=== PATIENT | male | born 1965 | race Caucasian/White ===

== ENCOUNTER 2020-01-21 22:45 | Inpatient (IN) | payer OTHER ==
[~2020-01-21] VITALS: Ht 185.4 cm; Wt 106.9 kg
[2020-01-22] VITALS (574 sets, daily range): BP systolic 120–138; BP diastolic 76–84; PULSE 85–119; TEMP 98.6–100.2; O2SAT 81–99
[2020-01-22] MEDS ORDERED: LEVAQUIN 750MG750 M1 PO (00:15)
[2020-01-22] MEDS ORDERED: FLOMAX 0.40.4 MG/CAP PO (00:19)
[2020-01-22] MEDS ORDERED: CIALIS2.5 MG (00:20)
[2020-01-22 00:29] LABS: BASO # 0.1 (0.0-0.2); BASO % 0.3 % (0.0-2.0); EOS # 0.2 (0.0-0.7); EOS % 1.4 % (0-4.0); GRAN # 10.3 (1.4-6.5); GRAN % 70.8 % (42.2-75.2); HEMATOCRIT 38.4 % (42.0-52.0); HEMOGLOBIN 12.8 g/dl (13.5-18.0); LYMPH # 2.4 (1.2-3.4); LYMPH % 16.7 % (20.0-51.0); MEAN CELL VOLUME 90 fl (80.0-100.0); MEAN CORPUSCULAR HEMOGLOBIN 30 pg (27.0-31.0); MEAN CORPUSCULAR HGB CONC 33 g/dl (33.0-37.0); MEAN PLATELET VOLUME 9.8 fl (7.4-10.4); MONO # 1.5 (0.1-0.6); MONO % 10.3 % (1.7-9.3); PLATELET COUNT 299 K/mm3 (130-400); RED BLOOD COUNT 4.29 M/mm3 (4.20-5.60); REDCELL DISTRIBUTION WIDTH-CV 13.6 % (11.5-14.5)
[2020-01-22 00:35] LABS: INR 1.5 (0.8-3.0); PROTHROMBIN TIME 17.5 SECONDS (9.7-12.8)
[2020-01-22 00:43] LABS: ALANINE AMINOTRANSFERASE 239 U/L (4-49); ALBUMIN 3.9 gm/dL (3.5-5.0); ALKALINE PHOSPHATASE 255 U/L (50-136); ANION GAP 8 mmol/L (7-16); AST,SGOT 71 U/L (15-37); BILIRUBIN,TOTAL 1.8 mg/dL (0.0-1.0); BLOOD UREA NITROGEN 14 mg/dL (9-20); CALCIUM 9.1 mg/dL (8.4-10.2); CARBON DIOXIDE 25 mmol/L (22-30); CHLORIDE 98 mmol/L (98-107); CREATININE, serum 1.07 (0.66-1.25); GLUCOSE 119 mg/dL (74-106); LIPASE 31 U/L (23-300); SODIUM 131 mmol/L (137-145); TOTAL PROTEIN 7.4 gm/dL (6.4-8.2)
[2020-01-22 00:55] LABS: C-REACTIVE PROTEIN 15.5 mg/dL (0.0-0.9); TROPONIN-I < 0.012 ng/mL (0.000-0.035)
--- NOTE | 2020-01-22 05:30 | NUR ---
patient arrived to [facility] 12. Assessment complete. Bases bilaterally diminshed. Heart sounds normal. Bowels active x4. Pulses present throughout. No edema noted. INT right AC without complications. Orientated to IMCU. All questions answered. BRISEYDA Haque in room to see patient.
[2020-01-22] MEDS ORDERED: CIALIS5 MG PO (05:44)
[2020-01-22] MEDS ORDERED: DOSTINEX0.5 MG/TAB (05:45)
[2020-01-22 05:57] LABS: BASO % 0.2 % (0.0-2.0); EOS % 0.3 % (0-4.0); GRAN % 82.5 % (42.2-75.2); HEMOGLOBIN 12.7 g/dl (13.5-18.0); LYMPH # 1.2 (1.2-3.4); MEAN CELL VOLUME 89 fl (80.0-100.0); MEAN CORPUSCULAR HEMOGLOBIN 30 pg (27.0-31.0); MEAN CORPUSCULAR HGB CONC 33 g/dl (33.0-37.0); MEAN PLATELET VOLUME 9.9 fl (7.4-10.4); MONO # 1.2 (0.1-0.6); MONO % 8.5 % (1.7-9.3); PLATELET COUNT 283 K/mm3 (130-400); RED BLOOD COUNT 4.25 M/mm3 (4.20-5.60); REDCELL DISTRIBUTION WIDTH-CV 13.8 % (11.5-14.5)
[2020-01-22 06:04] LABS: ALBUMIN 3.8 gm/dL (3.5-5.0); BILIRUBIN,TOTAL 2.4 mg/dL (0.0-1.0); CALCIUM 8.9 mg/dL (8.4-10.2); CREATININE, serum 1.01 (0.66-1.25); POTASSIUM 4.2 mmol/L (3.4-5.0); TOTAL PROTEIN 7.3 gm/dL (6.4-8.2)
[2020-01-22 06:30] LABS: ARTERIAL BLD GAS O2 SATURATION 94.5 % (92-100); ARTERIAL BLD GAS TCO2 CT 23.4; ARTERIAL BLOOD GAS BASE EXCESS -1.5 (-2-2); ARTERIAL BLOOD GAS HCO3 22.4 meq/L (22-26); ARTERIAL BLOOD GAS PCO2 35.1 mmHg (35-45); ARTERIAL BLOOD GAS PO2 66.3 mmHg (80-100); ARTERIAL BLOOD GAS pH 7.42 (7.35-7.45)
--- NOTE | 2020-01-22 06:30 | NUR ---
Reported nausea that resolved with repositioning. Denies needs. Will monitor/
--- NOTE | 2020-01-22 07:19 | NUR ---
Report given to SINDY Dang
--- NOTE | 2020-01-22 10:34 | NUR ---
SW contacted the patient to discuss discharge plan. The patient lives in [place] with his , Azul (ph#[phone]). He reports independence with ADLs and does not have any DME. The patient receives primary care and his medications at [facility]. He reports no difficulties obtaining his meds. The patient does not have advanced directives completed. The patient plans to return back home with his upon discharge. The patient is pending COVID results. SW to continue to follow as needed.
--- NOTE | 2020-01-22 11:00 | NUR ---
Assessment completed, alert/oriented, vital signs stable/ afebrile this morning, denies pain at this time, stated some intermittent nausea/ denies vomitting, is tolerating some PO intake, reports breathing is doing a little better, on 1L. o2 and sats are doing well in the upper 90%'s, lungs have good air exchanges/ some fine crackels to RLL, heart RRR, distal pulses are palapble, COVID suspect and in proper isolation per protocol, denies other needs at this time, will continue to monitor
--- NOTE | 2020-01-22 20:10 | NUR ---
Resting in bed visiting with family via cell phone. Assessment complete. Lungs dimished throughout. Heart sounds tachy. Bowels active x4. Pulses strong throughout. No edema noted. INT right AC flushed without complications. Zosyn started at this time. Denies shortness of breath and pain. Denies needs. Call light in reach.
--- NOTE | 2020-01-22 22:15 | NUR ---
patient up to restroom and returned to bed. Call light in reach. Denies needs.
[2020-01-23] VITALS (717 sets, daily range): BP systolic 120–139; BP diastolic 50–85; PULSE 87–112; TEMP 98.3–101.3; O2SAT 86–98
--- NOTE | 2020-01-23 00:07 | NUR ---
Patient reports aches with coughing in chest. 11/12. Provided with PRN tylenol. ALso has temp of 100.2. room temp decreased and covers removed.
--- NOTE | 2020-01-23 03:45 | NUR ---
Resting in bed. Denies needs. Call light in reach.
--- NOTE | 2020-01-23 06:38 | NUR ---
Patient had temp of max 100.2 during night. Tachycardia with ambulation. Otherwise uneventful night. Resting in bed this AM. Call light in reach.
--- NOTE | 2020-01-23 08:04 | NUR ---
Report given to SINDY Rosado
[2020-01-23 08:32] LABS: BASO % 0.2 % (0.0-2.0); EOS # 0.1 (0.0-0.7); EOS % 0.8 % (0-4.0); GRAN # 10.2 (1.4-6.5); GRAN % 77.9 % (42.2-75.2); HEMOGLOBIN 11.9 g/dl (13.5-18.0); LYMPH # 1.4 (1.2-3.4); LYMPH % 10.5 % (20.0-51.0); MEAN CELL VOLUME 90 fl (80.0-100.0); MEAN CORPUSCULAR HEMOGLOBIN 30 pg (27.0-31.0); MEAN CORPUSCULAR HGB CONC 33 g/dl (33.0-37.0); MEAN PLATELET VOLUME 10.7 fl (7.4-10.4); MONO # 1.3 (0.1-0.6); MONO % 10.1 % (1.7-9.3); PLATELET COUNT 308 K/mm3 (130-400); RED BLOOD COUNT 4.03 M/mm3 (4.20-5.60); REDCELL DISTRIBUTION WIDTH-CV 13.9 % (11.5-14.5)
[2020-01-23 08:34] LABS: HEMATOCRIT 36.4 % (42.0-52.0)
[2020-01-23 08:40] LABS: ALBUMIN 3.1 gm/dL (3.5-5.0); BILIRUBIN,TOTAL 1.3 mg/dL (0.0-1.0); CALCIUM 9.9 mg/dL (8.4-10.2); CREATININE, serum 1.05 (0.66-1.25); TOTAL PROTEIN 6.8 gm/dL (6.4-8.2)
--- NOTE | 2020-01-23 08:45 | NUR ---
Patient resting in bed. Alert & oriented. He tolerated breakfast, reports his appetite is improved. He is concerned about his O2 needs increasing with exertion. Vss on room air, O2 sats do decreased with exertion. Int to [facility] for Iv antibioitcs.
--- NOTE | 2020-01-23 11:16 | NUR ---
Patient up to the bathroom, no difficulty with voiding or constpation. Cardiology, hospitalist, & pulmonolgy have rounded. Patient denies the needs for hygiene assistance, it was offered. strict precautions in place, still pending covid testing.
[2020-01-23 13:38] LABS: CK total - for Isoenzymes 52 U/L (39 - 308)
--- NOTE | 2020-01-23 15:45 | NUR ---
1300 DAYDAY CHARGE NURSE ASSISTED WITH COVID 19 SCREEN. SENT TO LAB. Patient IV zosyn per orders. Continues to tolerate diet, low grade fever noted, no O2 needs at this time
--- NOTE | 2020-01-23 18:42 | NUR ---
Patient fever down to 99.3 after tylenol. He tolerated dinner. denies needs. will report off to night nurse
--- NOTE | 2020-01-23 20:30 | NUR ---
Resting in bed. Assessment complete. Right lung dimished. Left lung clear. Heart sounds normal. Bowels active x4. Pulses present throughout. Patient reports aches in chest with coughing. Provided PRN tylenol. INT right AC leaking. Restarted in right upper arm at this time. Denies other needs. Call light in reach.
[2020-01-24] VITALS (820 sets, daily range): BP systolic 115–142; BP diastolic 74–91; PULSE 92–113; TEMP 98.6–101; O2SAT 87–99
--- NOTE | 2020-01-24 00:45 | NUR ---
Patient temp is 100.5. Reports "feeling warm." Provided with PRN tylenol.
--- NOTE | 2020-01-24 01:46 | NUR ---
Patient temp 101. Room temp decreased. Cool wash cloth applied to forehead and neck. Will monitor.
--- NOTE | 2020-01-24 03:09 | NUR ---
patient temp down to 99.2. Resting in bed. Call light in reach.
[2020-01-24 06:12] LABS: BASO % 0.3 % (0.0-2.0); EOS # 0.1 (0.0-0.7); EOS % 0.9 % (0-4.0); GRAN # 8.9 (1.4-6.5); HEMOGLOBIN 11.8 g/dl (13.5-18.0); LYMPH # 1.5 (1.2-3.4); LYMPH % 12.3 % (20.0-51.0); MEAN CELL VOLUME 90 fl (80.0-100.0); MEAN CORPUSCULAR HEMOGLOBIN 29 pg (27.0-31.0); MEAN CORPUSCULAR HGB CONC 33 g/dl (33.0-37.0); MEAN PLATELET VOLUME 10.4 fl (7.4-10.4); MONO # 1.3 (0.1-0.6); MONO % 11.1 % (1.7-9.3); PLATELET COUNT 333 K/mm3 (130-400); RED BLOOD COUNT 4.02 M/mm3 (4.20-5.60); REDCELL DISTRIBUTION WIDTH-CV 13.6 % (11.5-14.5)
[2020-01-24 06:27] LABS: HEMATOCRIT 36.2 % (42.0-52.0)
[2020-01-24 06:29] LABS: ALBUMIN 3.3 gm/dL (3.5-5.0); BILIRUBIN,TOTAL 2.7 mg/dL (0.0-1.0); CALCIUM 8.7 mg/dL (8.4-10.2); CREATININE, serum 1.06 (0.66-1.25); POTASSIUM 3.7 mmol/L (3.4-5.0); TOTAL PROTEIN 6.7 gm/dL (6.4-8.2)
--- NOTE | 2020-01-24 06:52 | NUR ---
Patient febrile during night. Tmax 101.0. Given tylenol. Otherwise uneventful night. Restnig in bed this AM. Call light in reach.
--- NOTE | 2020-01-24 07:34 | NUR ---
Report given to SINDY Covarrubias
--- NOTE | 2020-01-24 08:50 | NUR ---
Patient in bed resting. Alert and oriented x 3. Assessement complete. Denies pain at this time. Patient independent in room. Denies further needs at this time.
--- NOTE | 2020-01-24 13:20 | NUR ---
Margret forte for PICC line placement
--- NOTE | 2020-01-24 14:36 | NUR ---
Vancomycin Initial Dosing Pharmacy Note Ordering provider: Dr. Lewis Indication/duration: Loculated pleural effusion Relevant comorbidities: Covid PUI LABS: CrCl ~90 Recommendation: Loading dose: 1.5 grams starting 01/24/20 Maintenance dose: 1.25 grams every 12 hours Trough goal: 15-20 ug/mL
--- NOTE | 2020-01-24 18:23 | NUR ---
Patient has done well throughout the day. PICC line to KRISTI without complications, antibiotics infusing per orders. Spouse, Brii updated throghout the day. Minimal needs, has been independent in room. Denies further needs at this time. Will report off to cnc machinist 2nd shift
--- NOTE | 2020-01-24 22:15 | NUR ---
Covid re-swab resulted as negative. BRISEYDA Pete was notified and asked if precautions can be removed, she said yes.
[2020-01-25] VITALS (1067 sets, daily range): BP systolic 136–147; BP diastolic 84–91; PULSE 84–109; TEMP 98.4–99.7; O2SAT 87–98
[2020-01-25 07:42] LABS: BASO # 0.1 (0.0-0.2); BASO % 0.4 % (0.0-2.0); EOS # 0.1 (0.0-0.7); EOS % 0.7 % (0-4.0); GRAN # 9.2 (1.4-6.5); GRAN % 72.8 % (42.2-75.2); HEMATOCRIT 36.1 % (42.0-52.0); HEMOGLOBIN 11.8 g/dl (13.5-18.0); LYMPH # 1.8 (1.2-3.4); LYMPH % 14.3 % (20.0-51.0); MEAN CELL VOLUME 90 fl (80.0-100.0); MEAN CORPUSCULAR HEMOGLOBIN 30 pg (27.0-31.0); MEAN CORPUSCULAR HGB CONC 33 g/dl (33.0-37.0); MEAN PLATELET VOLUME 10.2 fl (7.4-10.4); MONO # 1.4 (0.1-0.6); MONO % 11.3 % (1.7-9.3); PLATELET COUNT 352 K/mm3 (130-400); REDCELL DISTRIBUTION WIDTH-CV 13.9 % (11.5-14.5)
[2020-01-25 07:49] LABS: ALBUMIN 3.1 gm/dL (3.5-5.0); BILIRUBIN,TOTAL 2.1 mg/dL (0.0-1.0); CALCIUM 9.2 mg/dL (8.4-10.2); CREATININE, serum 1.02 (0.66-1.25); POTASSIUM 3.9 mmol/L (3.4-5.0); TOTAL PROTEIN 6.7 gm/dL (6.4-8.2)
--- NOTE | 2020-01-25 08:14 | NUR ---
gave the okay to take the patient off isolation precautions.
--- NOTE | 2020-01-25 09:49 | NUR ---
The patient's COVID results came back negative. The patient is to have a thorascopic decortication of his right chest tomorrow morning. SW to continue to follow as needed.
--- NOTE | 2020-01-25 11:40 | NUR ---
Pt resting in bed. Discussed plan for surgery tomorrow by Dr Soto. Pt stated Dr Soto explained procedure with him. Consent signed by pt and is in chart.
--- NOTE | 2020-01-25 13:08 | NUR ---
Pt to room 345 via wheelchair for shower. Towels, clean gown and toiletries provided. Explained call light in bathroom with pt. Instructed to call when finished with shower.
--- NOTE | 2020-01-25 13:50 | NUR ---
Pt back to [facility] via wheelchair. Linens changed. Pt in bed, watching tv. Ice water provided per pt request. No complaints at this time. Call light in reach.
[2020-01-25 15:49] LABS: CK total - for Isoenzymes 31 U/L (39 - 308)
--- NOTE | 2020-01-25 17:04 | NUR ---
Pt has no complaints at this time. Has been updating /family by phone throughout the day. Call light in reach.
--- NOTE | 2020-01-25 19:30 | NUR ---
Report given to SINDY Wu.
[2020-01-26] VITALS (714 sets, daily range): BP systolic 108–135; BP diastolic 67–92; PULSE 63–103; TEMP 97–100.1; O2SAT 85–100
[2020-01-26 04:41] LABS: BASO % 0.4 % (0.0-2.0); EOS # 0.1 (0.0-0.7); EOS % 0.6 % (0-4.0); GRAN # 7.8 (1.4-6.5); GRAN % 72.1 % (42.2-75.2); HEMOGLOBIN 11.2 g/dl (13.5-18.0); LYMPH # 1.7 (1.2-3.4); LYMPH % 15.9 % (20.0-51.0); MEAN CELL VOLUME 90 fl (80.0-100.0); MEAN CORPUSCULAR HEMOGLOBIN 30 pg (27.0-31.0); MEAN CORPUSCULAR HGB CONC 33 g/dl (33.0-37.0); MEAN PLATELET VOLUME 9.8 fl (7.4-10.4); MONO # 1.1 (0.1-0.6); MONO % 10.5 % (1.7-9.3); PLATELET COUNT 383 K/mm3 (130-400); RED BLOOD COUNT 3.74 M/mm3 (4.20-5.60); REDCELL DISTRIBUTION WIDTH-CV 13.9 % (11.5-14.5)
[2020-01-26 04:43] LABS: HEMATOCRIT 33.8 % (42.0-52.0)
[2020-01-26 04:51] LABS: ALBUMIN 3.3 gm/dL (3.5-5.0); BILIRUBIN,TOTAL 2.2 mg/dL (0.0-1.0); CALCIUM 8.6 mg/dL (8.4-10.2); CREATININE, serum 0.96 (0.66-1.25); POTASSIUM 3.7 mmol/L (3.4-5.0); TOTAL PROTEIN 6.6 gm/dL (6.4-8.2)
--- NOTE | 2020-01-26 07:27 | NUR ---
report given to SINDY Benz.
--- NOTE | 2020-01-26 10:35 | NUR ---
Patient returned from VATS procedure. Chest tube set up to low suction, 160 ml out of tube upon returning to room. He is awake, alert and slightly groggy but answers questions appropritely. Chest tube is to right chest, dressing is clean, dry and intact. States area is slightly sore. Is educated to notify staff if pain increases so appropriate pain management can be initiated. He verbalized understanding.
[2020-01-26 15:53] LABS: CK total - for Isoenzymes 25 U/L (39 - 308)
--- NOTE | 2020-01-26 16:43 | NUR ---
Patient is awake and alert in room, awaiting to go to procedure. Is on 2L O2 via NC. Respriations are nonlabored. Currently denies pain. Has been NPO, call light and personal items are within reach.
--- NOTE | 2020-01-26 19:05 | NUR ---
RECEIVED REPORT FROM SINDY CAGE. PT SITTING UP IN BED WATCHING TV ON 2L VIA AR. VSS. CALL LIGHT WITHIN REACH.
--- NOTE | 2020-01-26 19:43 | NUR ---
Report given to oncoming shift.
[2020-01-27] VITALS (495 sets, daily range): BP systolic 98–140; BP diastolic 69–86; PULSE 86–101; TEMP 98–100.8; O2SAT 88–99
--- NOTE | 2020-01-27 06:30 | NUR ---
POX 98% ON 2L VIA NC. RA TRIAL STARTED AT THIS TIME. PT STATES HE FEELS BETTER TODAY AND DOES NOT FEEL LIKE HE HAS TO CATCH HIS BREATH. WILL MONITOR CLOSELY.
--- NOTE | 2020-01-27 16:57 | NUR ---
CONSULT CALLED TO DR. ASTUDILLO
--- NOTE | 2020-01-27 17:57 | NUR ---
REPORT CALLED TO NERY CALLAHAN TO TRANSFER TO ROOM 319
--- NOTE | 2020-01-27 18:15 | NUR ---
report from Gail in [facility] will wait for transfer
[2020-01-28 00:26] VITALS: BP 136/76; PULSE 92; TEMP 98.5
--- NOTE | 2020-01-28 02:17 | NUR ---
PATIENT IS UP AT THE SIDE OF THE BED USING THE URINAL AND HIS ANTIBIOTIC WAS STARTED
--- NOTE | 2020-01-28 04:22 | NUR ---
PATIENT IS RESTING IN BED
[2020-01-28 04:26] VITALS: BP 127/55; PULSE 93; TEMP 98.7
--- NOTE | 2020-01-28 05:00 | NUR ---
patient has slept off and on through his IV going off and switching antibiotics. chest tube has had some output noted. patient is having good urine output. patient has not reported any pain to this nurse. patient does get up independtly in his room. denies any other needs at this time. will report off to day shift upon their arrival
[2020-01-28 06:01] LABS: HEMOGLOBIN 10.5 g/dl (13.5-18.0); MEAN CELL VOLUME 90 fl (80.0-100.0); MEAN CORPUSCULAR HEMOGLOBIN 30 pg (27.0-31.0); MEAN CORPUSCULAR HGB CONC 33 g/dl (33.0-37.0); MEAN PLATELET VOLUME 9.9 fl (7.4-10.4); PLATELET COUNT 379 K/mm3 (130-400); RED BLOOD COUNT 3.54 M/mm3 (4.20-5.60); REDCELL DISTRIBUTION WIDTH-CV 14.1 % (11.5-14.5)
[2020-01-28 06:14] LABS: BAND 3 % (0-10); EOSINOPHIL 2 % (0-4); LYMPHOCYTE 18 % (20.0-51.0); NEUTROPHILS 69 % (42.0-75.2); PLATELET ESTIMATE NORMAL (NORMAL)
[2020-01-28 06:20] LABS: BILIRUBIN,TOTAL 1.2 mg/dL (0.0-1.0); CALCIUM 8.5 mg/dL (8.4-10.2); CREATININE, serum 0.98 (0.66-1.25); POTASSIUM 4.1 mmol/L (3.4-5.0); TOTAL PROTEIN 6.3 gm/dL (6.4-8.2)
--- NOTE | 2020-01-28 07:45 | NUR ---
UPON ENTRY TO THE ROOM DR. OLEA IS REMOVING THE PATIENTS RIGHT CHEST TUBE. SUTURE INTACT. OCCLUSIVE FOAM DRESSING IN PLACE OVER CHEST TUBE SITE. PATIENT DENIES PAIN AT THIS TIME. UPPER LUNG LOBES CLEAR UPON AUSCULTATION. LEFT LOWER LUNG LOBE CLEAR UPON AUSCULTATION. RIGHT LOWER LUNG LOBE DIMINISHED UPON AUSCULTATION. TACHYCARDIA NOTED, TELE IN PLACE. VSS. PATIENT STATES THAT HE HAS A PRODUCTIVE COUGH, BUT HE SWALLOWS THE MUCOUS. PICC LINE TO RUE. CALL LIGHT WITHIN REACH. PATIENT DENIES ANY OTHER NEEDS AT THIS TIME.
[2020-01-28 08:01] VITALS: BP 123/74; PULSE 99; TEMP 98.3
--- NOTE | 2020-01-28 11:34 | NUR ---
Project Consultant attended clinical rounds with the team and patient had a fever last night. Patient may discharge home tomorrow. Patient is currently on room air. No additional needs at this time.
[2020-01-28 11:41] VITALS: BP 144/94; PULSE 101; TEMP 98.5
--- NOTE | 2020-01-28 12:28 | NUR ---
First visit from the hospital insurance representative. No needs right now.
[2020-01-28 16:17] VITALS: BP 128/85; PULSE 94; TEMP 99.2
--- NOTE | 2020-01-28 19:16 | NUR ---
REPORT GIVEN TO SINDY BOB.
--- NOTE | 2020-01-28 20:30 | NUR ---
Initial shift assessment done- denies pain, temp 99.2- will give Tylenol at this time,,Tele on, PICC to KRISTI, DRessing dry and intact to right chest site
[2020-01-28 21:22] VITALS: BP 125/82; PULSE 79; TEMP 98.9
[2020-01-29 00:39] VITALS: BP 140/83; PULSE 85; TEMP 98.3
[2020-01-29 04:29] VITALS: BP 137/88; PULSE 78; TEMP 98.5
[2020-01-29 06:41] LABS: HEMOGLOBIN 10.4 g/dl (13.5-18.0); MEAN CELL VOLUME 91 fl (80.0-100.0); MEAN CORPUSCULAR HEMOGLOBIN 30 pg (27.0-31.0); MEAN CORPUSCULAR HGB CONC 33 g/dl (33.0-37.0); MEAN PLATELET VOLUME 9.9 fl (7.4-10.4); PLATELET COUNT 426 K/mm3 (130-400); RED BLOOD COUNT 3.46 M/mm3 (4.20-5.60); REDCELL DISTRIBUTION WIDTH-CV 14.3 % (11.5-14.5)
[2020-01-29 06:42] LABS: HEMATOCRIT 31.5 % (42.0-52.0)
--- NOTE | 2020-01-29 06:45 | NUR ---
Afebrile, VSS, denies pain- no requests
[2020-01-29 06:59] LABS: ALBUMIN 2.9 gm/dL (3.5-5.0); BILIRUBIN,TOTAL 0.9 mg/dL (0.0-1.0); CALCIUM 8.6 mg/dL (8.4-10.2); CREATININE, serum 0.94 (0.66-1.25); POTASSIUM 4.2 mmol/L (3.4-5.0); TOTAL PROTEIN 6.1 gm/dL (6.4-8.2)
[2020-01-29 07:50] LABS: BAND 2 % (0-10); BASOPHIL 1 % (0-2); EOSINOPHIL 2 % (0-4); LYMPHOCYTE 21 % (20.0-51.0); METAMYELOCYTE 2 % (0-0); NEUTROPHILS 67 % (42.0-75.2); PLATELET ESTIMATE NORMAL (NORMAL)
[2020-01-29 08:55] VITALS: BP 145/87; PULSE 102; TEMP 98.5
[2020-01-29] MEDS ORDERED: LEVAQUIN 5500 MG/TA1 PO (09:42)
[2020-01-29] MEDS ORDERED: CLEOCIN HCL300 MG PO (09:43)
--- NOTE | 2020-01-29 09:55 | NUR ---
Payment Analyst attended clinical rounds with the team. Patient to discharge home today. No needs at this time.
--- NOTE | 2020-01-29 10:02 | NUR ---
PT IN ROOM IN BED, PT ATE MOST OF BREAKFAST. PT NOT COMPLAINING OF ANY PAIN. PT STATED WHEN HE COUGHS SOME SPUTUM DOES COME UP STILL. PT BED IN LOW POSITION, FRESH ORANGE JUICE BROUGHT IN FOR HIM. PT SEEMS TO BE IN GOOD SPIRITS, REFUSED LOVENOX DUE TO HIS ACITIVITY IN THE ROOM AND POSSIBLE DISCHARGE TODAY. R SIDE LUNGS DIM, L SIDE CLEAR. NO EDEMA PRESENT. NO OTHER NEEDS AT THIS TIME.
[2020-01-29 11:22] VITALS: BP 134/76; PULSE 95; TEMP 98.2
--- NOTE | 2020-01-29 12:52 | NUR ---
INFORMED PT THAT DISCHARGE WAS THE PLAN FOR TODAY BUT WE WERE WAITING ON SANDRA MEHTA, TO REMOVE HIS PICC. INFORMED HIM SHE WOULD NOT BE IN UNTIL AFTER 1300.
--- NOTE | 2020-01-29 13:39 | NUR ---
PT CURRENTLY GETTING DRESSED, WILL PRESS CALL LIGHT WHEN IS AT ER ENTRANCE.
--- NOTE | 2020-01-29 13:39 | NUR ---
DISCHARGE TEACHING PROVIDED, INSTRUCTIONS ON POST PICC PROVIDED, NO OTHER NEEDS AT THIS TIME.
--- NOTE | 2020-01-29 14:10 | NUR ---
PT LEFT UNIT VIA WHEELCHAIR WITH BELONGINGS. ESCORTED INTO CAR BY ER ENTRANCE.
[2020-01-29 14:33] LABS: CK total - for Isoenzymes 129 U/L (39 - 308)
[2020-01-30 13:55] LABS: CK total - for Isoenzymes 74 U/L (39 - 308)
== END 2020-01-29 14:11 | disposition home or self-care (01) | DRG 163 ==
LOC: COL.ER 22:45 → EU 01-22 03:21 → MEDICAL 01-27 18:16
PROVIDERS: Emergency Medicine; Nurse Practitioner Family; Physician Assistant; Surgery; ADMIT Hospitalist
PROC: 02HV33Z Insertion of Infusion Device into Superior Vena Cava, Percutaneous Approach (ICD-10-PCS; 2020-01-24)
PROC: 0W9930Z Drainage of Right Pleural Cavity with Drainage Device, Percutaneous Approach (ICD-10-PCS; 2020-01-26)
PROC: 0BCF4ZZ Extirpation of Matter from Right Lower Lung Lobe, Percutaneous Endoscopic Approach (ICD-10-PCS; principal; 2020-01-26 08:00)
DX: J43.9 Emphysema, unspecified (principal); J96.01 Acute respiratory failure with hypoxia; K83.1 Obstruction of bile duct; J15.9 Unspecified bacterial pneumonia; J90 Pleural effusion, not elsewhere classified; N40.0 Benign prostatic hyperplasia without lower urinary tract symptoms; R55 Syncope and collapse; R74.0 Nonspecific elevation of levels of transaminase and lactic acid dehydrogenase [LDH]; E04.1 Nontoxic single thyroid nodule; Z20.818 Contact with and (suspected) exposure to other bacterial communicable diseases; E86.9 Volume depletion, unspecified; R01.1 Cardiac murmur, unspecified; E27.9 Disorder of adrenal gland, unspecified
CPT/HCPCS: 99223-AI; 99232-AI; 99233-AI; 99239; A7041; A9284; C1729; C1751; J0330; J0456; J1650; J2270; J2543; J2704; J3010; J3370; J7030; J7050; Q9967

== ENCOUNTER → 2023-08-04 | Outpatient (CLI) | payer OTHER ==
[~2023-08-04] MED LIST: CIALIS2.5 MG; CIALIS5 MG PO; CLEOCIN HCL300 MG PO; DOSTINEX0.5 MG/TAB; FLOMAX 0.40.4 MG/CAP PO; LEVAQUIN 5500 MG/TA1 PO; LEVAQUIN 750MG750 M1 PO
== END ==
LOC: COL.CARD 11:01
DX: R06.02 Shortness of breath (principal)